=== PATIENT | male | born 1975 | race Caucasian/White ===

== ENCOUNTER 2016-08-17 07:53 | Emergency (ER) | payer BC ==
[~2016-08-17] VITALS: Ht 177.8 cm; Wt 104.5 kg
[~2016-08-17 07:53] MED LIST: ADVIL,NUPRIN,M200 MG PO; ASPIR-LOW81 MG PO; CLINDAMYCIN HC300 MG PO; IBUPROFEN800 MG PO; LIPITOR20 MG PO; METFORMIN HCL500 MG PO; NO MEDS; ULTRAM50 MG PO
[2016-08-17] MEDS ORDERED: LORTAB 5-325 M1 EACH PO (08:55)
[2016-08-17 09:24] VITALS: BP 133/80
== END 2016-08-17 09:25 | disposition home or self-care (01) ==
LOC: EME 07:53
DX: S00.252A Superficial foreign body of left eyelid and periocular area, initial encounter (principal); Z23 Encounter for immunization; W45.8XXA Other foreign body or object entering through skin, initial encounter; E11.9 Type 2 diabetes mellitus without complications; E78.5 Hyperlipidemia, unspecified; F17.200 Nicotine dependence, unspecified, uncomplicated; Z71.6 Tobacco abuse counseling; Z79.4 Long term (current) use of insulin
CPT/HCPCS: 99281; 99283